=== PATIENT | male | born 1965 | race Caucasian/White ===

== ENCOUNTER 2018-12-07 23:15 | Inpatient (IN) | payer MEDICAID ==
[2018-12-07] MEDS ORDERED: NS 1,000 ML IV ONE ×2 (23:19→23:56)
[2018-12-07] MEDS ORDERED: HALOPERIDOL LACT 5 MG/ML INJ IM ONE (23:20)
[2018-12-07] MEDS ORDERED: LORazepam 2 MG/ML INJ IM PRN (23:20)
[2018-12-07] MEDS ORDERED: HALOPERIDOL LACT 5 MG/ML INJ ONE (23:21)
[2018-12-07] MEDS ORDERED: LORazepam 2 MG/ML INJ ONE (23:21)
--- NOTE | 2018-12-07 23:26 | EDPHY ---
H & P Time Seen by Provider: 12/07/18 23:24 HPI/ROS: HPI CHIEF COMPLAINT: Drug intoxication, agitated, combative behavior, 4 point restraints by EMS and police. HISTORY OF PRESENT ILLNESS: This patient is a 53-year-old male, unknown medical history presents emergency room in 4 point restraints by police and EMS with police escort. He apparently was in the streets causing a disturbance acting agitated, combative, screaming, admits to shooting up drugs what is believed to be methamphetamine and heroin. He arrives to the emergency room somewhat agitated, in 4 point restraints, yelling. I am unable to really get any history from him. He does admit to doing heroin and methamphetamine. IV drug use. Past Medical History: Polysubstance abuse, IV drug use Past Surgical History: Unknown surgical history Social History: polysubstance abuse Family History: Unknown ROS REVIEW OF SYSTEMS: Limited due to drug intoxication Exam Constitutional agitated, combative, yelling, in 4 point restraints, triage nursing summary reviewed, vital signs reviewed, awake/alert. 38.3 upon arrival , tachycardic to the 130s. Hypertensive 157/111. Eyes normal conjunctivae and sclera, EOMI, PERRLA. HENT oropharynx poor dentition. moist mucus membranes, no epistaxis, neck supple/ no meningismus, no raccoon eyes. Respiratory clear to auscultation bilaterally, normal breath sounds, no respiratory distress, no wheezing. Cardiovascular rate normal, regular rhythm, no murmur, no edema, distal pulses normal. Gastrointestinal soft, non-tender, no rebound, no guarding, normal bowel sounds, no distension, no pulsatile mass. Genitourinary no CVA tenderness. Musculoskeletal no midline vertebral tenderness, full range of motion, no calf swelling, no tenderness of extremities, no meningismus, good pulses, neurovascularly intact. Skin pink, warm, & dry, no rash, skin atraumatic. Neurologic screaming moving all the extremities but in 4 point restraints. Psychiatric screaming, agitated. Heme/Lymph/Immune no lymphadenopathy. Differential Diagnosis: Includes but is not limited to in a particular order polysubstance abuse, drug intoxication, IV drug use, acute psychosis, underlying mental illness Medical Decision Making: Plan for this patient due to his agitated combative, aggressive, screaming behavior patient be given 10 mg IM Haldol for his safety as well as staff safety, 2 mg IM Ativan eventually when he calms down will establish an IV, IV fluid bolus, basic labs, drug screen, alcohol level monitor closely. Monitor for worsening of condition. Re-evaluation: Notified by nursing staff at midnight: Patient noted to be febrile 38.3. Noted be tachycardic Plan for rectal Tylenol, IV fluids, chest x-ray, urine, blood work, drug screen and alcohol level. EKG interpretation by me on record in [employer] system. Impression time of EKG 0016, sinus tach 134, no ST elevation. Patient drug screen positive for methamphetamine. 1:30 a.m. patient admitted to the hospitalist service for tachycardia, fever of unclear etiology. He is much more, now with Haldol And Ativan. Rectal Tylenol given. 3rd L fluid given. Labs reviewed suppressed white count concerning, additionally elevated LFTs no abdominal pain on exam. Critical Care: Total Critical Care Time Spent Managing this Patient: 65 Minutes. This time was spent Exclusively with this patient. This Care was exclusive of procedures. The Organ System/life at risk was poly substance overdose, acute psychosis, encephalopathy, acute febrile illness, tachycardia, sepsis, neutropenia This Patient was in Critical Condition because poly substance overdose, acute psychosis, encephalopathy, acute febrile illness, tachycardia, sepsis, neutropenia Source: Patient, EMS - Medical/Surgical History Hx Asthma: No Hx Chronic Respiratory Disease: No Hx Diabetes: No Hx Cardiac Disease: No Hx Renal Disease: No Hx Cirrhosis: No Hx Alcoholism: No Hx HIV/AIDS: No Hx Splenectomy or Spleen Trauma: No Other PMH: denies - Social History Smoking Status: Heavy smoker Constitutional: Initial Vital Signs Temperature (C) 38.3 C H 12/07/18 23:39 Heart Rate 135 H 12/07/18 23:39 Respiratory Rate 28 H 12/07/18 23:39 Blood Pressure 157/111 H 12/07/18 23:39 O2 Sat (%) 95 12/07/18 23:39 O2 Delivery Mode Nasal Cannula O2 (L/minute) 2 Allergies/Adverse Reactions: No Known Allergies Allergy (Unverified 11/09/17 20:44) Home Medications: Medication Instructions Recorded Loratadine/Pseudoephedrine 1 each PO DAILY PRN 11/10/17 [Claritin-D 24 Hour Tablet] Acetaminophen [Tylenol 325mg (*)] 650 mg PO Q4HRS PRN tab 11/11/17 Medical Decision Making - Data Points Laboratory Results: Laboratory Results 12/07/18 23:35 12/07/18 23:35 Microbiology Results: MICROBIOLOGY 12/07/18 23:00 Blood Blood Culture - Preliminary Gram Negative Lg 12/07/18 23:00 Blood Blood Panel (PCR) - Final Enterobacteriaceae Group 12/08/18 00:24 Blood Blood Culture - Preliminary Medications Given: Aspirin Buffered (Aspirin Ec) 325 mg PO DAILY SAUNDRA Stop: 06/07/19 09:59 Last Admin: 12/09/18 10:36 Dose: 325 mg Bacitracin (Bacitracin Ointment) 1 christy TP BID SAUNDRA Stop: 01/08/19 14:29 Last Admin: 12/09/18 22:52 Dose: 1 christy Enoxaparin Sodium (Lovenox) 40 mg SC DAILY SAUNDRA Stop: 06/06/19 08:59 Last Admin: 12/09/18 09:25 Dose: 40 mg Sodium Chloride (Ns) 1,000 mls @ 150 mls/hr IV CONT SAUNDRA Stop: 06/06/19 02:14 Last Admin: 12/09/18 21:48 Dose: 1,000 mls Vancomycin/Sodium Chloride (Vancomycin 1 Gm (Premix)) 250 mls @ 250 mls/hr IV Q12H SAUNDRA Stop: 01/07/19 13:29 Last Admin: 12/10/18 02:01 Dose: 250 mls Piperacillin/Tazobactam/Dextrose (Zosyn (Premix)) 100 mls @ 200 mls/hr IV Q6HRS SAUNDRA PRN Reason: Protocol Stop: 01/07/19 17:59 Last Admin: 12/10/18 00:39 Dose: 100 mls Nicotine (Nicoderm Cq) 21 mg TD DAILY SAUNDRA Stop: 06/06/19 10:44 Last Admin: 12/09/18 09:25 Dose: 21 mg Nitroglycerin (Nitro-Bid 2%) 0.5 inch TP Q8HRS SAUNDRA Stop: 06/06/19 10:14 Last Admin: 12/09/18 22:52 Dose: 0.5 inch Discontinued Medications Acetaminophen (Tylenol Rectal) 650 mg GA EDNOW ONE Stop: 12/07/18 23:57 Last Admin: 12/08/18 00:05 Dose: 650 mg Aspirin (Aspirin Rectal) 300 mg GA DAILY SAUNDRA Stop: 06/06/19 10:14 Last Admin: 12/09/18 09:58 Dose: Not Given Haloperidol Lactate (Haldol Injection) 10 mg IM EDNOW ONE Stop: 12/07/18 23:21 Last Admin: 12/07/18 23:37 Dose: 10 mg Sodium Chloride (Ns) 1,000 mls @ 0 mls/hr IV EDNOW ONE; Wide Open PRN Reason: Protocol Stop: 12/07/18 23:20 Last Admin: 12/07/18 23:36 Dose: 1,000 mls Sodium Chloride (Ns) 1,000 mls @ 0 mls/hr IV ONCE ONE PRN Reason: Wide Open Stop: 12/07/18 23:57 Last Admin: 12/08/18 00:02 Dose: 1,000 mls Piperacillin/Tazobactam/Dextrose (Zosyn (Premix)) 100 mls @ 200 mls/hr IV EDNOW ONE PRN Reason: Protocol Stop: 12/08/18 00:35 Last Admin: 12/08/18 00:41 Dose: 100 mls Vancomycin HCl 1.5 gm/ Sodium (Chloride) 250 mls @ 166.67 mls/hr IV EDNOW ONE PRN Reason: Protocol Stop: 12/08/18 02:29 Last Admin: 12/08/18 01:12 Dose: 250 mls Sodium Chloride (Ns) 1,000 mls @ 0 mls/hr IV ONCE ONE PRN Reason: Wide Open Stop: 12/08/18 01:24 Last Admin: 12/08/18 01:30 Dose: 1,000 mls Sodium Chloride (Ns) 1,000 mls @ 0 mls/hr IV EDNOW ONE; Wide Open PRN Reason: Protocol Stop: 12/08/18 01:30 Last Admin: 12/08/18 02:58 Dose: 1,000 mls Piperacillin/Tazobactam/Dextrose (Zosyn 2.25 Gm (Premix)) 50 mls @ 100 mls/hr IV Q6HRS SAUNDRA PRN Reason: Protocol Stop: 01/07/19 05:59 Last Admin: 12/08/18 13:25 Dose: 50 mls Sodium Chloride (Ns) 1,000 mls @ 0 mls/hr IV EDNOW ONE PRN Reason: Wide Open Stop: 12/08/18 02:28 Last Admin: 12/08/18 07:04 Dose: Not Given Piperacillin/Tazobactam/Dextrose (Zosyn 2.25 Gm (Premix)) 50 mls @ 100 mls/hr IV ONCE ONE Stop: 12/08/18 14:14 Last Admin: 12/08/18 13:44 Dose: 50 mls Lorazepam (Ativan Injection) 2 mg IM EDNOW ONE Stop: 12/07/18 23:34 Last Admin: 12/07/18 23:37 Dose: 2 mg Departure - Departure Disposition: [facility] Acute Clinical Impression: Polysubstance abuse, Tachycardia, Methamphetamine abuse, Dehydration, SIGRID ( acute kidney injury), NSTEMI (non-ST elevated myocardial infarction) Fever Qualifiers: Fever type: unspecified Qualified Code(s): R50.9 - Fever, unspecified Condition: Critical
[2018-12-07] MEDS ORDERED: LORazepam 2 MG/ML INJ IM ONE (23:33)
[2018-12-07 23:45] LABS: PLATELET COUNT 254 10^3/uL (150-400)
[2018-12-07] MEDS ORDERED: ACETAMINOPHEN 650 MG SUPP PR ONE (23:56)
[2018-12-08] MEDS ORDERED: VANCOMYCIN 1.5 GM in D5W 250 ML IV ONE (00:06)
[2018-12-08] MEDS ORDERED: PIPERACILLIN/TAZO 4.5 GM/DEX 100 ML IV ONE (00:06)
[2018-12-08 00:22] LABS: CREATINE KINASE 230 IU/L (0-224)
[2018-12-08] MEDS ORDERED: ACETAMINOPHEN 325 MG TAB PO PRN (00:32)
[2018-12-08] MEDS ORDERED: ONDANSETRON DISINTEGRATING 4 MG TAB PO PRN (00:32)
[2018-12-08] MEDS ORDERED: ONDANSETRON 4 MG/2 ML VIAL IVP PRN (00:32)
[2018-12-08] MEDS ORDERED: VANCOMYCIN 1.5 GM in NS 250 ML IV ONE (01:00)
[2018-12-08] MEDS ORDERED: NS 1,000 ML IV ONE ×3 (01:23→02:27)
--- NOTE | 2018-12-08 02:06 | PDGENHP ---
History and Physical - Chief Complaint Agitation - History of Present Illness 53 yo M w/ hx of IVDU brought to ED by EMS for agitation. The patient is sedated during my evaluation and unable to provide any history. History obtained from chart and discussion with ED physician. Per report, the patient was lying down on the street not responding to commands. Police were called and the patient became agitated and combative so EMS was called. The admitted to IV methamphetamine use. He was sedated with Haldol and Ativan. During a period of observation in the ED he became febrile and tachycardic. He is also leukopenic. He is being admitted for sepsis of unknown etiology. Case discussed wit ED physician Dr. Molina; records reviewed and summarized above. History Information - Allergies/Home Medication List Allergies/Adverse Reactions: No Known Allergies Allergy (Unverified 11/09/17 20:44) Home Medications: Loratadine/Pseudoephedrine [Claritin-D 24 Hour Tablet] 1 each PO DAILY PRN 11/10 [Last Taken Unknown] I have personally reviewed and updated: family history, medical history - Past Medical History Additional medical history: IVDU - Surgical History Additional surgical history: Unable to obtain due to altered mental status - Family History Additional family history: Unable to obtain due to altered mental status - Social History Smoking Status: Heavy smoker Review of Systems Review of Systems: Unable to obtain due to altered mental status Physical Exam Physical Exam: Temp Pulse Resp BP Pulse Ox 39.2 C H 132 H 28 H 101/64 98 12/08/18 01:16 12/08/18 01:16 12/08/18 01:16 12/08/18 01:16 12/08/18 01:16 O2 (L/minute) 3 Constitutional: chronically ill appearing, unkempt Eyes: PERRL, anicteric sclera Ears, Nose, Mouth, Throat: moist mucous membranes, poor dentition Cardiovascular: tachycardia, No edema Respiratory: no respiratory distress, clear to auscultation Gastrointestinal: normoactive bowel sounds, soft, non-tender abdomen Skin: warm, normal color Neurologic: other (Sedated), No facial droop Psychiatric: encephalopathic, poor memory, other (Sedated) Lab Data & Imaging Review 12/07/18 23:35 12/07/18 23:35 WBC 1.85 10^3/uL (3.80-9.50) L 12/07/18 23:35 RBC 4.40 10^6/uL (4.40-6.38) 12/07/18 23:35 Hgb 12.2 g/dL (13.7-17.5) L 12/07/18 23:35 Hct 36.1 % (40.0-51.0) L 12/07/18 23:35 MCV 82.0 fL (81.5-99.8) 12/07/18 23:35 MCH 27.7 pg (27.9-34.1) L 12/07/18 23:35 MCHC 33.8 g/dL (32.4-36.7) 12/07/18 23: RDW 14.6 % (11.5-15.2) 12/07/18 23:35 Plt Count 254 10^3/uL (150-400) 12/07/18 23:35 MPV 9.0 fL (8.7-11.7) 12/07/18 23:35 Neut % (Auto) 77.4 % (39.3-74.2) H 12/07/18 23:35 Lymph % (Auto) 20.5 % (15.0-45.0) 12/07/18 23:35 Rock % (Auto) 0.5 % (4.5-13.0) L 12/07/18 23:35 Eos % (Auto) 1.1 % (0.6-7.6) 12/07/18 23:35 Baso % (Auto) 0.0 % (0.3-1.7) L 12/07/18 23: Nucleat RBC Rel Count 0.0 % (0.0-0.2) 12/07/18 23:35 Absolute Neuts (auto) 1.43 10^3/uL (1.70-6.50) L 12/07/18 23:35 Absolute Lymphs (auto) 0.38 10^3/uL (1.00-3.00) L 12/07/18 23:35 Absolute Monos (auto) 0.01 10^3/uL (0.30-0.80) L 12/07/18 23:35 Absolute Eos (auto) 0.02 10^3/uL (0.03-0.40) L 12/07/18 23:35 Absolute Basos (auto) 0.00 10^3/uL (0.02-0.10) L 12/07/18 23:35 Absolute Nucleated RBC 0.00 10^3/uL (0-0.01) 12/07/18 23:35 Immature Gran % 0.5 % (0.0-1.1) 12/07/18 23:35 Immature Gran # 0.01 10^3/uL (0.00-0.10) 12/07/18 23:35 RBC/WBC/PLT Morphology TNP 12/07/18 23:35 Platelet Estimate TNP 12/07/18 23:35 VBG Lactic Acid 1.8 mmol/L (0.7-2.1) 12/08/18 01:30 Sodium 138 mEq/L (135-145) 12/07/18 23:35 Potassium 3.5 mEq/L (3.5-5.2) 12/07/18 23:35 Chloride 106 mEq/L (97-110) 12/07/18 23:35 Carbon Dioxide 21 mEq/l (22-31) L 12/07/18 23:35 Anion Gap 11 mEq/L (6-14) 12/07/18 23:35 BUN 21 mg/dL (7-23) 12/07/18 23:35 Creatinine 1.6 mg/dL (0.7-1.3) H 12/07/18 23:35 Estimated GFR 45 12/07/18 23:35 Glucose 96 mg/dL (70-100) 12/07/18 23:35 Calcium 8.5 mg/dL (8.5-10.4) 12/07/18 23:35 Total Bilirubin 1.7 mg/dL (0.1-1.4) H 12/08/18 00:00 Conjugated Bilirubin 1.0 mg/dL (0.0-0.5) H 12/08/18 00:00 Unconjugated Bilirubin 0.7 mg/dL (0.0-1.1) 12/08/18 00:00 AST 342 IU/L (17-59) H 12/08/18 00:00 ALT 514 IU/L (21-72) H 12/08/18 00:00 Alkaline Phosphatase 175 IU/L (38-126) H 12/08/18 00:00 Creatine Kinase 230 IU/L (0-224) H 12/08/18 00:00 CK-MB (CK-2) Fraction 3.40 ng/mL (0.00-4.55) 12/08/18 00:00 CK-MB (CK-2) % 1.5 % (0.0-4.0) 12/08/18 00:00 Creatine Kinase Interp NEGATIVE (NEGATIVE) 12/08/18 00:00 POC Troponin I 0.16 ng/mL (0.00-0.08) H 12/08/18 01:38 Total Protein 5.8 g/dL (6.3-8.2) L 12/08/18 00:00 Albumin 3.0 g/dL (3.5-5.0) L 12/08/18 00:00 Procalcitonin 8.76 ng/mL (0.02-0.10) H 12/08/18 00:24 TSH 0.952 uIU/mL (0.465-4.680) 12/07/18 23:35 Urine Color YELLOW 12/08/18 00:45 Urine Appearance HAZY 12/08/18 00:45 Urine pH 5.0 (5.0-7.5) 12/08/18 00:45 Ur Specific [place] 1.015 (1.002-1.030) 12/08/18 00:45 Urine Protein 2+ (NEGATIVE) H 12/08/18 00:45 Urine Ketones NEGATIVE (NEGATIVE) 12/08/18 00:45 Urine Blood NEGATIVE (NEGATIVE) 12/08/18 00:45 Urine Nitrate NEGATIVE (NEGATIVE) 12/08/18 00:45 Urine Bilirubin NEGATIVE (NEGATIVE) 12/08/18 00:45 Urine Urobilinogen 2.0 EU (0.2-1.0) H 12/08/18 00:45 Ur Leukocyte Esterase NEGATIVE (NEGATIVE) 12/08/18 00:45 Urine RBC 1-3 /hpf (0-3) 12/08/18 00:45 Urine WBC 3-5 /hpf (0-3) H 12/08/18 00:45 Ur Epithelial Cells NONE SEEN /lpf (NONE-1+) 12/08/18 00:45 Hyaline Casts 15-25 /lpf (0-1) H 12/08/18 00:45 Urine Mucus TRACE /lpf (NONE-1+) 12/08/18 00:45 Urine Sperm PRESENT /hpf (NONE SEEN) 12/08/18 00:45 Urine Glucose NEGATIVE (NEGATIVE) 12/08/18 00:45 Salicylates < 1.0 mg/dL (2.0-20.0) L 12/08/18 00:00 Urine Opiates Screen NEGATIVE (NEGATIVE) 12/08/18 00:45 Acetaminophen < 10 mcg/mL (10-30) L 12/08/18 00:00 Urine Barbiturates NEGATIVE (NEGATIVE) 12/08/18 00:45 Ur Phencyclidine Scrn NEGATIVE (NEGATIVE) 12/08/18 00:45 Ur Amphetamine Screen NON-NEGATIVE (NEGATIVE) H 12/08/18 00:45 U Benzodiazepines Scrn NEGATIVE (NEGATIVE) 12/08/18 00:45 Urine Cocaine Screen NEGATIVE (NEGATIVE) 12/08/18 00:45 U Marijuana (THC) Screen NEGATIVE (NEGATIVE) 12/08/18 00:45 Ethyl Alcohol < 10 mg/dL (0-10) 12/07/18 23:35 Visualized and Interpreted Chest x-ray results: Yes Chest X-Ray results: other (Elevated R hemidiaphragm) Assessment & Plan Assessment: 53 yo M w/ hx of IVDU presents with agitation and found to have sepsis of unclear etiology. Plan: 1. Sepsis - Unclear etiology; patient presents with agitation and found to have fever, tachycardia, leukopenia, elevated LFTs, and very elevated procalcitonin. He is very high risk for bloodstream infection noting ongoing IVDU. - Admit to ICU for close monitoring - S/p 30 mL/kg fluid bolus, additional IVF PRN - Vancomycin, Zosyn for initial broad coverage - Blood cultures pending - Will also obtain HIV and acute hepatitis panel - TTE ordered noting high risk for endocarditis 2. Leukopenia - Possible due to acute infection. Review of available records reveals normal baseline. - Monitor CBC - Infectious management as above - HIV ordered 3. SIGRID - Likely related to dehydration and infection. - S/p aggressive IVF - Monitor BMP 4. Abnormal LFTs - Elevated in hepatocellular pattern, perhaps related to infection vs. IVDU. - Acute hepatitis panel ordered - Monitor CMP 5. Elevated troponin - Suspect demand ischemia from IVDU and significant tachycardia. - Monitor on telemetry, trend cardiac enzymes - TTE ordered 6. Agitation - Likely related to methamphetamine use. Now sedated after Haldol and Ativan in the ED. Diet - NPO Code - Full Ppx - LMWH Dispo - Admit under inpatient status
[2018-12-08] MEDS: NS 1,000 ML IV SCH ×2 (03:36→13:16)
[2018-12-08 04:18] LABS: HEPATITIS B SURFACE ANTIGEN NEGATIVE (NEGATIVE)
[2018-12-08 04:27] LABS: HEPATITIS A ANTIBODY IGM (BCH) NEGATIVE (NEGATIVE); HEPATITIS B CORE AB IGM NEGATIVE (NEGATIVE)
[2018-12-08 04:46] LABS: HEPATITIS C ANTIBODY TOTAL REACTIVE (NEGATIVE); HIV TYPE 1 AND 2 NEGATIVE (NEGATIVE)
[2018-12-08] MEDS: PIPERACILLIN/TAZO 2.25 GM/DEX 50 ML IV SCH ×2 (06:19→13:25)
[2018-12-08 06:20] LABS: PLATELET COUNT 215 10^3/uL (150-400)
--- NOTE | 2018-12-08 10:07 | HOSPPROG ---
Hospitalist Progress Note Assessment/Plan: The patient is a 53-year-old male with PMH polysubstance abuse who was admitted for severe sepsis with unknown infectious source- found to have NSTEMI secondary to methamphetamine abuse. ASSESSMENT/PLAN: Severe Sepsis, unk infectious source -IVF, Abx - vanc, Zosyn. -BCx pending. NSTEMI, 2/2 demand ischemia and meth abuse Meth abuse -counselor manager on cessation -NTG prn CP -Cardiology recs appreciated SIGRID, 2/2 above -Would not be surprised if he had suffered ATN from reduced kidney blood flow. -IVF. Abnl Hep C test -check confirmatory test -viral PCR Abnl appearing urine -Recheck UA. Suspected reactive airways disease -probably from smoking meth, but pt may have asthma as well. -May consider Tx if pt c/o dyspnea. -prn O2, SVNs. Agitation/Combativeness -Pt received Haldol/Ativan earlier this AM. -2/2 meth, which hopefully has worn off. -monitor for meth abstinence syndrome/withdrawal VTE prophylaxis: Lovenox Code Status: Full code Status: Inpatient for > 2 midnight stay. Disposition: ICU ____ SUBJECTIVE: OBJECTIVE: Physical Exam: General: The patient is a male who is sleeping and in no acute distress. HEENT: normocephalic, extraocular movements intact, conjunctivae clear. Mucous membranes moist. Neck: trachea midline, no visible masses. CV: +S1/S2, RRR, no MRG. Resp: unlabored, CTAB no RRW. Abd: soft and nondistended. Appears to be nontender. Musculoskeletal: Normal muscle tone/bulk. Neuro: cranial nerves II - XII grossly intact. Intact gross motor and sensory function. Psych: Unable to assess as patient is sleeping. Skin: No pallor. No petechiae. +multiple tattoos. Heme/lymph: No peripheral edema at bilateral ankles. Labs/Imaging/Other Tests: Personally reviewed/interpreted. Objective: Vital Signs Temp Pulse Resp BP Pulse Ox 36.9 C 110 H 21 H 103/65 93 12/08/18 07:51 12/08/18 07:51 12/08/18 07:51 12/08/18 07:51 12/08/18 07:51 Microbiology 12/08/18 00:58 Respiratory Panel (PCR) - Final Nasal, Sinus - Swab No Organism Detected By Pcr Laboratory Results 12/08/18 05:55 12/08/18 05:55 12/07/18 12/08/18 12/09/18 05:59 05:59 05:59 Intake Total 4950 Output Total 150 Balance 4800 - Time Spent With Patient Time Spent with Patient: greater than 35 minutes Time Spent with Patient: Greater than 35 minutes spent on this patients care, greater than 50% of time spent counseling, educating, and coordinating care regarding the above mentioned plan. ICD10 Worksheet Patient Problems: Problems Problem Status Onset SIGRID (acute kidney injury) Acute Dehydration Acute Fever Acute Methamphetamine abuse Acute Polysubstance abuse Acute Tachycardia Acute Elevated serum creatinine Acute IV drug abuse Acute
--- NOTE | 2018-12-08 10:10 | SOAPPROG ---
SOAP Progress Note Assessment/Plan: Assessment: Cardiology consultations performed and dictated. 53 y/o man found combative and delirium last night with Methamphetamine OD. Troponin found to be 2.4. ECG: Sinus tachycardia with Q waves anteriorly but no ST elevation or depression. He is very somnolent but arousable. Mumbles no CP. Otherwise not able to give oral history. On exam euvolemic and no S3. IMP: 1)NQWMI in setting of Methamphetamine OD 2)Fevers and elevated LFTs and serum creatinine REC: 1)echo today to evaluate LVEF and if any obvious valvular lesions or vegetations. 2)serial cardiac troponin q 6hrs x 2 more 3)empiric nitropaste 1/2" q 8hrs if SBP > 90 4)ASA 325mg AR qday 5)CAD risk factors with either cardiac cath later in hospitalization or lexiscan cardiolite once echo done and pt more awake and can give better history. Thanks. Will follow with you. 12/08/18 10:06 Objective: Vital Signs Temp Pulse Resp BP Pulse Ox 36.9 C 110 H 21 H 103/65 93 12/08/18 07:51 12/08/18 07:51 12/08/18 07:51 12/08/18 07:51 12/08/18 07:51 Microbiology 12/08/18 00:58 Respiratory Panel (PCR) - Final Nasal, Sinus - Swab No Organism Detected By Pcr Laboratory Results 12/08/18 05:55 12/08/18 05:55 12/07/18 12/08/18 12/09/18 05:59 05:59 05:59 Intake Total 4950 Output Total 150 Balance 4800 ICD10 Worksheet Patient Problems: Problems Problem Status Onset SIGRID (acute kidney injury) Acute Dehydration Acute Fever Acute Methamphetamine abuse Acute Polysubstance abuse Acute Tachycardia Acute Elevated serum creatinine Acute IV drug abuse Acute
--- NOTE | 2018-12-08 10:41 | ECHO ---
[email or web address] [address] Main: [phone] Echocardiography Examination Transthoracic Name: DYLAN BOB MR#: [id number] Study Date: 12/08/2018 Study Time: 09:13 AM Date of : 1965 Age: 53 year(s) Height: 182.9 cm (72 in.) Weight: 90.72 kg (200 lb.) BSA: 2.13 m2 Gender: Male Examination: Echo Contrast: Image Quality: Rhythm: Tachycardia Heart Rate: 112 bpm BP: 100 mmHg/66 mmHg Indication: Meth, Elevated Troponin, Sustained Ventricular Tachycardia Procedure Staff Referring Physician: [employer] Sales Representative: Brandt Cee RDCS Reading Physician: Ras Milan MD Requesting Provider: Ordering Physician: Erich Fierro Indication: Meth, Elevated Troponin, Sustained Ventricular Tachycardia Measurements Chambers AV/MV Label Value Normal Value Label Value Normal Value LVDd, MM 4.4 cm (4.2cm - 5.9cm) MV E Vmax 0.75 m/s LVDd, 2D 4.9 cm (4.2cm - 5.9cm) MV A Vmax 1.17 m/s LVDs, MM 3.1 cm (2cm - 3.8cm) MV E/A 0.64 LVDs, 2D 3.2 cm (2.1cm - 4cm) MV E/E' lateral 18.2 IVSd, MM 1.2 cm (0.6cm - 0.9cm) MV E/E' septal 22.5 (0.5 - 1.7) IVSd, 2D 0.9 cm (0.6cm - 1.1cm) MV E' septal 0.03 m/s LVPWd, MM 1.4 cm (0.6cm - 1cm) MV E' lateral 0.04 m/s LVPWd, 2D 1 cm (0.6cm - 1cm) MV E/E' mean 21.43 LVEF, 2D 64 % (54% - 74%) MV E' mean 0.04 m/s LA Volume, BP 58 ml (18ml - 58ml) TV/PV LAESV index, BP 27.2 ml/m2 Label Value Normal Value Additional Vessels PV PGmax 3 mmHg Label Value Normal Value PV Vmax, Caliper 0.82 m/s (0.6m/s - 0.9m/s) AoRoot, MM 3.4 cm (2.2cm - 3.7cm) Conclusions Left Ventricle: CONCLUSIONS:1)Low normal LV systolic function with a LVEF of 50% and abnormal septal wall Patient: DYLAN BOB Study Date: 12/08/2018 Page 1 of 2 09:13 AM bounce.2)Borderline concentric LVH with mild diastolic dysfunction noted.'3)Trivial to mild MR without MV prolapse.4)Trivial to mild TR noted.5)No obvious vegetations of any of caridac valves.6)No pericardial effusion seen. Findings Left Ventricle: Left ventricle is normal in size. CONCLUSIONS: 1)Low normal LV systolic function with a LVEF of 50% and abnormal septal wall bounce. 2)Borderline concentric LVH with mild diastolic dysfunction noted.' 3)Trivial to mild MR without MV prolapse. 4)Trivial to mild TR noted. 5)No obvious vegetations of any of caridac valves. 6)No pericardial effusion seen.The LV wall thickness is at the upper limits of normal. There is paradoxic septal motion suggestive of bundle branch block, paced cardiac rhythm, or prior cardiac surgery. Borderline concentric LV hypertrophy. Right Atrium: The right atrium size is at the upper limits of normal. Mitral Valve: Mitral valve appears structurally normal. Trivial to mild mitral regurgitation. Aortic Valve: Aortic leaflets are normal in appearance and function. No aortic valve regurgitation. There is no aortic stenosis. Tricuspid Valve: Tricuspid valve leaflets are structurally normal. Trivial tricuspid regurgitation. Pulmonic Valve: Pulmonic leaflets are normal in appearance and function. Aorta: The aorta is normal. The aortic root size in M-mode measures 3.4 cm. Aorta Measurements AoRoot, MM is 3.4 cm. IVC: The inferior vena cava is mildly dilated. Pericardium: No pericardial effusion. Exam Details Procedure Ordered: Echo (No Signature Object) Patient: DYLAN BOB Study Date: 12/08/2018 Page 2 of 2 09:13 AM [id number]
[2018-12-08] MEDS: NITROGLYCERIN 2% 1 GM PACKET TP SCH ×3 (10:44→22:48)
[2018-12-08] MEDS: NICOTINE 21 MG/24 HR PATCH TD SCH (10:52)
[2018-12-08] MEDS: ENOXAPARIN 40 MG/0.4 ML SYR SC SCH (10:54)
--- NOTE | 2018-12-08 11:04 | GCON ---
[f rep st] CONSULTATION CARDIOLOGY CONSULT DATE OF CONSULTATION: 12/08/2018 REASON FOR CONSULTATION: Methamphetamine overdose with non-Q-wave AL. HISTORY OF PRESENT ILLNESS: The patient is a 53-year-old gentleman, unable to give an accurate histo ry. He has no past medical records to evaluate. He was found by the police on the street last night around midnight with delirium and combativeness. He was arrested and brought to the ER. Clinically and by drug screen, he appeared to have a methamphetamine overdose. He was given Haldol and medicat ions and is in the intensive care unit. A troponin is 2.4. His EKG shows sinus tachycardia, 108 shira ts per minute with poor anterior R-wave progression, but no acute ST elevation or depression. He is somnolent, but awakable. He mumbles. He is not having chest pain, but otherwise cannot give much of a history. His blood pressure is 103/65 with a heart rate in sinus of 110 beats per minute. PAST MEDICAL HISTORY: Unknown. PAST SURGICAL HISTORY: Unknown. CURRENT MEDICATIONS: Zosyn 2.25 g IV q.6 hours, Lovenox 40 mg subcu q.a.m., normal saline at 150 cc/ hour, and vancomycin. ALLERGIES: No known drug allergies. SOCIAL HISTORY: Positive for methamphetamine use. Rest of history unknown. FAMILY HISTORY: Unable to give accurate family history. REVIEW OF SYSTEMS: The patient is somnolent and delirious and unable to give accurate review of syst ems. PHYSICAL EXAMINATION: VITALS: Initial temperature 39.2 Celsius, now 36.9 Celsius, pulse 110 and sin us tachycardia. Blood pressure 103/65, respirations 18, 93% on room air. Weight 90.7 kg. GENERAL: A disheveled and somnolent gentleman sleeping without acute respiratory distress. EYES: Pupils equ al and reactive to light. ENT: Oral mucosa with no cyanosis. NECK: Jugular venous pressure to 7 c m. Carotid pulses 2+ bilaterally. LUNGS: Clear to auscultation bilaterally without rales, rhonchi, or wheezing. HEART: Tachycardic, normal rhythm. No obvious murmurs or S3. Abdominal exam soft an d nontender. No guarding or rebound. EXTREMITIES: 2+ peripheral pulses, including femoral and peda l pulses. No edema noted. MUSCULOSKELETAL: No scoliosis. NEURO: Sedated and delirious affect and mood. SKIN: Multiple tattoos. No obvious bleeding or cyanosis. NECK: No nuchal rigidity. EKG this morning, sinus tachycardia at 108 beats per minute. Poor R-wave progression anteriorly. No acute ST elevation or depression. LABS: White count 12.1, hematocrit 35, platelets 215,000, MCV 84. Sodium 138, potassium 3.5, chlori de 112, bicarb 23, BUN 21, creatinine 1.5, glucose 119, AST 268, ALT 412, troponin 2.4. IMPRESSION: A 53-year-old gentleman with clinically methamphetamine overdose with acute liver and ki dney damage and non-Q-wave myocardial infarction. He does not appear to be having ST-elevation, and I wonder if his non Q-wave myocardial infarction is related to acute vasospasm from his methamphetami ne. RECOMMENDATIONS: 1. Would add empiric nitroglycerin paste 0.5 inch q.8 hours as long as his systolic blood pressure a crystal 90. 2. Would start aspirin 300 mg rectally daily. 3. Would get an echocardiogram today to evaluate LV function. 4. Would get serial serum troponin levels q.6 hours x2 more sets to make sure his myocardial injury is coming down. 5. Once he is more awake and echo results are known, would recommend risk stratifying him with eithe r a heart catheterization or a Lexiscan Cardiolite stress test later in this hospitalization. Thank you for allowing me to participate in the care of the patient. Cardiology service will follow along with you during his hospitalization. /[id number]/MODL
[2018-12-08] MEDS: ASPIRIN RECTAL 300 MG SUPP PR SCH (13:16)
[2018-12-08] MEDS ORDERED: PIPERACILLIN/TAZO 2.25 GM/DEX 50 ML IV ONE (13:45)
--- NOTE | 2018-12-08 14:14 | GCON ---
[f rep st] CONSULTATION DATE OF CONSULTATION: 12/08/2018 HPI: This patient is a 53-year-old male with a history of IV drug use, who was initially found on street unresponsive. Police were called and he became very combative, yelling and screaming. He w as treated with Haldol, Ativan and brought to the emergency department. He continued to be highly co mbative at that time, requiring restraints and was treated with another 10 mg of Haldol, as well as A tivan x2 mg. He was found also to be febrile at 38.3, and had leukopenia. Once his agitation was co ntrolled, he was admitted to the hospital with a sepsis of unknown origin workup. There were multipl e other laboratory abnormalities, but his ability to provide history was markedly impaired, other norah n he admitted to methamphetamine use. He also reported heroin use in the field, but his tox screen w as negative for opiates. REVIEW OF SYSTEMS: Otherwise negative. PAST MEDICAL HISTORY: Includes a right antecubital arm abscess that required drainage in November. There was a phlegmon at that time and he was seen by Dr. Jones. He had no alcohol withdraw al at that time. IV drug use as described above. PAST SURGICAL HISTORY: None, as far as we know. SOCIAL HISTORY: Polysubstance abuse is reported. FAMILY HISTORY: Unknown. CURRENT MEDICATIONS: Include Tylenol, aspirin, Lovenox, nicotine patch, Zofran, Zosyn, normal saline and vancomycin. EXAM: VITAL SIGNS: He had a T-max of 39.2, currently 36.8. At the time of my exam, blood pressure is 103/64, heart rate 108, respirations 19, oxygen saturation 96% on room air. GENERAL: He was high ly somnolent, but did arouse to voice and answer some questions, yes or no, followed simple commands, but was mostly obtunded. HEENT: Pupils equally round and reactive to light, nonicteric and noninje cted. Mucous membranes are moist without erythema or exudate. NECK: Supple without adenopathy or j ugular vein distention. RESPIRATORY: His breath sounds were clear to auscultation bilaterally witho ut wheezes, rubs, or rales. HEART: Regular rate and rhythm without obvious murmur. ABDOMEN: Soft, nontender and nondistended without hepatosplenomegaly. EXTREMITIES: No clubbing, cyanosis, or evin a. NEUROLOGIC: Exam was nonfocal other than the obtundation including deep tendon reflexes. SKIN: Warm and dry without evidence of rash, but multiple tattoos. OBJECTIVE DATA: Includes a chest x-ray showing hypoventilatory features, but some right hilar fullne ss. His procalcitonin level was at least 8. His white count initially was only 1.85 (this morning i s 12.0), hematocrit 34.6, platelets of 215. Sodium is 138, potassium 3.5, chloride 110, bicarb 23, a nion gap initially 11, down to 5 now. BUN 21, creatinine was 1.6, down to 1.5. Glucose 119. Total bili 2.2, alk phos was 175, down to 111. AST was 342, down to 268. ALT 514, down to 412 today. CK was 230. Troponin was 2.4. Albumin 2.3. TSH was normal. UA was unremarkable. Tox screen was sign ificant for amphetamines, but lacked opiates or alcohol. ASSESSMENT AND PLAN: 1. Acute methamphetamine intoxication. He is quite calm at this point and I would pursue as calm an atmosphere as possible with lights down low and minimal stimulation, as these patients can have card iovascular collapse with excess stimulation. Hopefully, this will wear out in the next 24 to 48 hour s and be less of an issue. 2. Fever and sepsis of uncertain origin. It may be in his lungs. His blood cultures are currently negative, but the very high procalcitonin level coupled with fever and leukopenia is concerning for s epsis. Subsequently, I think that we should continue his Zosyn and his vancomycin. We will adjust t hose doses on the Zosyn and ask Pharmacy for management on the vanco. 3. Elevated troponin. He has had a cardiology consult. Nitro paste was added as long as his blood pressure tolerates. An echocardiogram was done showing no vegetations. Ejection fraction of 50%. W e will continue to follow and monitor for changes and consider cardiac scanning versus cath later in his hospitalization. 4. Acute kidney injury. This is likely due to dehydration and is quite mild. He is making urine at this point. I do not think rhabdomyolysis is contributing much at the moment. We will continue wit h his IV fluids and ongoing monitoring. 5. Rhabdomyolysis. This is very mild. Second look would be appropriate at this time, as methamphet amine patients can have significant rhabdomyolysis. 6. Transaminitis. This may be related to alcohol or other issues. It is hard to know at this point . He is getting somewhat better, but given his history, I think we should look at hepatitis serologi es. A total of 65 minutes of critical care time was required for this patient. /[id number]/MODL
[2018-12-08] MEDS ORDERED: IPRATROPIUM/ALBUTEROL 3 ML DEYVIAL IH PRN (14:46)
--- NOTE | 2018-12-08 14:47 | PDMN ---
Medical Necessity Medical necessity: Pt meets IP criteria per MD & MCG M-160; est los >2 mn for eval/tx of sepsis (unclear etiology) w/SIGRID & NSTEMI secondary to meth use; admit to ICU for further workup/close monitoring, IVFs, IV abx & Cardiolgy consult; hx IVDU; per H&P & order 12/07/18
[2018-12-08 15:06] LABS: HEPATITIS A ANTIBODY IGM (BCH) NEGATIVE (NEGATIVE); HEPATITIS B CORE AB IGM NEGATIVE (NEGATIVE); HEPATITIS B SURFACE ANTIGEN NEGATIVE (NEGATIVE)
[2018-12-08] MEDS: VANCOMYCIN HCL/NORMAL SALINE 250 ML IV SCH (15:41)
[2018-12-08 15:43] LABS: HEPATITIS C ANTIBODY TOTAL REACTIVE (NEGATIVE)
--- NOTE | 2018-12-08 15:54 | ASMTCMCOM ---
CM Note CM Note Notes: CM attempted on two occasions to visit pt in his room. Pt medically unstable and unable to participate in conversation. Pt has a hx of meth use and was found combative and delirium on admission in ED. It is too early to determine needs at this time. CM will continue to follow. Plan: TBD Date Signed: 12/08/2018 03:53 PM Electronically Signed By:Sonia Ramirez
[2018-12-08] MEDS: PIPERACILLIN/TAZO 4.5 GM/DEX 100 ML IV SCH (17:43)
[2018-12-09] MEDS: PIPERACILLIN/TAZO 4.5 GM/DEX 100 ML IV SCH ×4 (00:44→18:27)
[2018-12-09] MEDS: VANCOMYCIN HCL/NORMAL SALINE 250 ML IV SCH ×2 (03:45→14:31)
[2018-12-09] MEDS: NS 1,000 ML IV SCH ×3 (05:28→21:48)
[2018-12-09] MEDS: NITROGLYCERIN 2% 1 GM PACKET TP SCH ×3 (06:02→22:52)
[2018-12-09 06:21] LABS: PLATELET COUNT 186 10^3/uL (150-400)
[2018-12-09 06:34] LABS: CREATINE KINASE 1048 IU/L (0-224)
--- NOTE | 2018-12-09 08:23 | CPEKG ---
Test Reason : OPEN Blood Pressure : / mmHG Vent. Rate : 134 BPM Atrial Rate : 135 BPM P-R Int : 079 ms QRS Dur : 089 ms QT Int : 296 ms P-R-T Axes : -88 040 062 degrees QTc Int : 442 ms Sinus or ectopic atrial tachycardia Anteroseptal infarct, age indeterminate Confirmed by Simone Santana ([id number]) on 12/09/2018 8:23:10 AM Referred By: Simone Santana Confirmed By:Simone Santana
[2018-12-09] MEDS: ENOXAPARIN 40 MG/0.4 ML SYR SC SCH (09:25)
[2018-12-09] MEDS: NICOTINE 21 MG/24 HR PATCH TD SCH (09:25)
[2018-12-09] MEDS: ASPIRIN RECTAL 300 MG SUPP PR SCH (09:58)
--- NOTE | 2018-12-09 10:06 | PDCARPN ---
Cardiology Progress Note Chief Complaint: Patient feels "heavy" Assessment/Plan: Assessment: Patient is a 53 y/o male with active methamphetamine use, who was brought to [facility] with severe confusion and combativeness. Cardiac biomarker elevation was noted (CK, MB, and troponin), and there is a subtle trend down. Echocardiography with low normal LVEF (50%) and some septal wall motion abnormalities. Concentric LVH was also noted, which begs the question of HTN. Patient is reportedly doing better from a mental status perspective, but not tremendously conversant. There was documentation to consider left heart catheterization or nuclear stress testing. No active cardiovascular complaints of chest pains or pressure. Mental status is still not normal (according to the patient). Concerns about compliance with prescribed medical therapy. Plan: (1) As the patient becomes more alert and oriented, discussions about wishes ( testing in particular) should be addressed - if the patient has no intent on cessation of illicit drugs, and follow up is potentially compromised given active, ongoing use of said illicits, decisions to pursue invasive procedures need to be thought out. This is NOT to say that any therapy or treatment should be withheld, but it is to clarify that follow up is important. (2) Would consider Velma MPI over angiography (given possible normal findings, and thus, lack of need to expose patient to risk of invasive procedure) Cardiology can continue to follow this patient, and provide further recommendations. Would reassess troponin today to ensure that trend continues to normalize. Elevation that was noted appears to be a non STEMI, and likely driven by illicit use and concomitant hypertensive response Subjective: No cardiovascular complaints Objective: Vital Signs (8 Hrs) Temp Pulse Resp BP Pulse Ox 12/09/18 08:00 36.2 C 87 18 109/72 94 12/09/18 06:00 36.1 C 97 15 106/60 96 12/09/18 04:00 36.1 C 98 15 115/66 97 12/09/18 02:00 100 15 93/50 L 96 Intake/Output (24 Hrs) 12/08/18 12/09/18 12/10/18 05:59 05:59 05:59 Intake Total 52625 Output Total 1965 Balance 40767 Intake: IV Intake (ml) 373 IV Infused (ml) 49617 Ns 1,000 ml @ 150 mls/hr 1184 IV CONT SAUNDRA Rx#: [id number] Ns 1,000 ml @ Wide Open 5000 IV EDNOW ONE Rx#: [id number] Piperacillin/Tazo 2.25 gm 362 /Dex 50 ml @ 100 mls/hr IV ONCE ONE Rx#: [id number] Vancomycin 1.5 gm In Ns 250 250 ml @ 166.67 mls/hr IV EDNOW ONE Rx#:[id number] Output: Urine (ml) 1965 Catheter 1815 Other: Weight 90.71 kg Result Diagrams: 12/09/18 05:55 12/09/18 05:55 Cardiac Labs: Cardiac Lab Results (72 Hrs) 12/09/18 12/08/18 12/08/18 05:55 17:10 12:30 CK-MB (CK-2) Fraction 15.00 H Troponin I 2.300 H 2.740 H 12/08/18 05:55 CK-MB (CK-2) Fraction Troponin I 2.400 H Telemetry: sinus tachycardia Echocardiogram: LVEF of 50% with septal wall motion abnormality. LVH was noted. No clear valve pathology was appreciated - Physical Exam Constitutional: WDWN, healthy appearing, no apparent distress Eyes: PERRL, EOMI Ears, Nose, Mouth, Throat: moist mucous membranes Cardiovascular: regular rate and rhythm (tachycardia), no murmurs, no rubs, no gallops, pulses symmetric bilat, No jugular vein distention Peripheral Pulses: 2+: dorsalis-pedis (R), dorsalis-pedis (L) Respiratory: clear to auscultate bilat, no crackles, no wheezes Gastrointestinal: normoactive bowel sounds Skin: no rashes, no edema, other (diffuse tattoos) Musculoskeletal: no muscular tenderness Neurologic: AAOx3, CN II-XII grossly intact Psychiatric: interactive ICD10 Worksheet Patient Problems: Problems Problem Status Onset SIGRID (acute kidney injury) Acute Dehydration Acute Fever Acute Methamphetamine abuse Acute Polysubstance abuse Acute Tachycardia Acute Elevated serum creatinine Acute IV drug abuse Acute
[2018-12-09] MEDS: ASPIRIN EC 325 MG TAB PO SCH (10:36)
[2018-12-09] MEDS: BACITRACIN OINTMENT 1 PACKET TP SCH ×2 (15:47→22:52)
--- NOTE | 2018-12-09 16:47 | PDINTPN ---
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 Know meth use and positive on tox screen. Opiates negative. * Acute methamphetamine intoxication- appears to be resolving with fewer medications and cooperative. Continue to observe as this can wax/wane * Bacteremia- he started with fever and high provalcitonin without obvious source. Blood cultures positive today with Enterococcus and currently covered with Vanco/Zosyn. initial TTE without vegitations; may need ALFRED if Bcx remain positive. Recheck. Hemodynamics OK * Troponin- peaked at 2.7. Defer to cards if further workup warranted * LFTs improved. Positive Hep C * Rhabdo 09/09 meth- CK increased to 1048- recheck am. Not a likely contributor to SIGRID * SIGRID- related to dehydration- creatine dropped from 1.6 to 1.2 * altered mental status related to meth- improving * Skin lac? base of 4th digit, right- place bacitracin 12/09/18 16:47 Subjective: stable overnight and more alert today, cooperative. No complaints except minor skin breakdown at 4th digit of right hand Objective: Vital Signs Temp Pulse Resp BP Pulse Ox 36.3 C 100 17 111/65 97 12/09/18 16:00 12/09/18 16:00 12/09/18 16:00 12/09/18 16:00 12/09/18 16:00 Laboratory Results 12/09/18 05:55 12/09/18 05:55 12/08/18 12/09/18 12/10/18 05:59 05:59 05:59 Intake Total 79464 Output Total 1965 Balance 78086 Physical Exam - Physical Exam General Appearance: no apparent distress, obtunded, other (aroused to voice and followed simple commands; cooperative) EENT: PERRL/EOMI Neck: supple Respiratory: lungs clear, normal breath sounds, decreased breath sounds, No respiratory distress, No accessory muscle use Cardiac/Chest: regular rate, rhythm, No edema, No JVD Abdomen: soft, No non-tender, No distended Skin: normal color, warm/dry, No cyanosis Lymphatic: no adenopathy Extremities: other (linear skin breakdown at base of 4th right digit), No pedal edema Neuro/Psych: normal mood/affect, cognition abnormalities, No oriented x 3 ICD10 Worksheet Patient Problems: Problems Problem Status Onset SIGRID (acute kidney injury) Acute Dehydration Acute Fever Acute Methamphetamine abuse Acute Polysubstance abuse Acute Tachycardia Acute Elevated serum creatinine Acute IV drug abuse Acute
--- NOTE | 2018-12-09 18:24 | HOSPPROG ---
Hospitalist Progress Note Assessment/Plan: The patient is a 53-year-old male with PMH polysubstance abuse who was admitted for severe sepsis with unknown infectious source- found to have NSTEMI secondary to methamphetamine abuse. ASSESSMENT/PLAN: Severe Sepsis, unk infectious source -IVF, Abx - vanc, Zosyn. -BCx prelim enterbacterciae x 1, 2nd pending. 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 Abnl Hep C test -pending confirmatory test -viral PCR Suspected reactive airways disease -probably from smoking meth, but pt may have asthma as well. -May consider Tx if pt c/o dyspnea. -prn O2, SVNs. Agitation/Combativeness/Encephalopathy - resolved -prn Haldol/Ativan. -2/2 meth -monitor for meth abstinence syndrome/withdrawal VTE prophylaxis: Lovenox Code Status: Full code Status: Inpatient for > 2 midnight stay. Disposition: ICU ____ SUBJECTIVE: OBJECTIVE: Physical Exam: General: The patient is a male who is in no acute distress. HEENT: normocephalic. Mucous membranes moist. Neck: trachea midline, no visible masses. CV: +S1/S2, RRR, no MRG. Resp: unlabored, CTAB no RRW. Abd: soft and nondistended. Musculoskeletal: Normal muscle tone/bulk. Neuro: cranial nerves II - XII grossly intact. Intact gross motor and sensory function. Psych: appropr mood. Skin: No pallor. No petechiae. +multiple tattoos. Heme/lymph: No peripheral edema at bilateral ankles. Labs/Imaging/Other Tests: Personally reviewed/interpreted. Subjective: Pt tired, says his whole body is sore. He has mostly been sleeping/ resting. No acute events per RN Objective: Vital Signs Temp Pulse Resp BP Pulse Ox 36.3 C 100 17 111/65 97 12/09/18 16:00 12/09/18 16:00 12/09/18 16:00 12/09/18 16:00 12/09/18 16:00 Laboratory Results 12/09/18 05:55 12/09/18 05:55 12/08/18 12/09/18 12/10/18 05:59 05:59 05:59 Intake Total 14866 Output Total 1965 Balance 87939 - Time Spent With Patient Time Spent with Patient: greater than 35 minutes Time Spent with Patient: Greater than 35 minutes spent on this patients care, greater than 50% of time spent counseling, educating, and coordinating care regarding the above mentioned plan. ICD10 Worksheet Patient Problems: Problems Problem Status Onset SIGRID (acute kidney injury) Acute Dehydration Acute Fever Acute Methamphetamine abuse Acute Polysubstance abuse Acute Tachycardia Acute Elevated serum creatinine Acute IV drug abuse Acute
[2018-12-10] MEDS: PIPERACILLIN/TAZO 4.5 GM/DEX 100 ML IV SCH ×5 (00:39→23:55)
[2018-12-10] MEDS: VANCOMYCIN HCL/NORMAL SALINE 250 ML IV SCH (02:01)
[2018-12-10] MEDS: NS 1,000 ML IV SCH ×2 (05:07→23:56)
[2018-12-10] MEDS: NITROGLYCERIN 2% 1 GM PACKET TP SCH ×2 (05:34→15:01)
[2018-12-10 06:14] LABS: PLATELET COUNT 200 10^3/uL (150-400)
[2018-12-10 06:43] LABS: CREATINE KINASE 499 IU/L (0-224)
[2018-12-10] MEDS: NICOTINE 21 MG/24 HR PATCH TD SCH (09:25)
[2018-12-10] MEDS: ENOXAPARIN 40 MG/0.4 ML SYR SC SCH (09:25)
[2018-12-10] MEDS: BACITRACIN OINTMENT 1 PACKET TP SCH ×2 (09:25→23:55)
[2018-12-10] MEDS: ASPIRIN EC 325 MG TAB PO SCH (09:25)
--- NOTE | 2018-12-10 13:06 | PDCARPN ---
Cardiology Progress Note Chief Complaint: No cardiovascular complaints today. Assessment/Plan: Assessment: 12-10-18 Patient feeling well today. No cardiovascular complaints of chest pains or pressure. No PND or orthopnea has been noted. Discussion with patient about the elevation to the Troponin that was noted, and likely cause being meth use. There are ongoing decisions about possible sepsis (and there was mention of possible ALFRED). Plan appears to be ICU to step down/PCU, and further decisions about imaging (ALFRED) and treatment to be rendered with this transition. 12-09-18 Patient is a 53 y/o male with active methamphetamine use, who was brought to [facility] with severe confusion and combativeness. Cardiac biomarker elevation was noted (CK, MB, and troponin), and there is a subtle trend down. Echocardiography with low normal LVEF (50%) and some septal wall motion abnormalities. Concentric LVH was also noted, which begs the question of HTN. Patient is reportedly doing better from a mental status perspective, but not tremendously conversant. There was documentation to consider left heart catheterization or nuclear stress testing. No active cardiovascular complaints of chest pains or pressure. Mental status is still not normal (according to the patient). Concerns about compliance with prescribed medical therapy. Plan: (1) Would consider outpatient follow up with cardiology - discussion about further testing (MPI or invasive left heart cath) (2) As decisions about care are made, further testing/treatments can be discussed Subjective: No cardiovascular complaints Objective: Vital Signs (8 Hrs) Temp Pulse Resp BP Pulse Ox 12/10/18 11:46 36.6 C 95 18 109/63 95 12/10/18 11:19 94 12/10/18 08:00 36.6 C 81 18 111/73 95 12/10/18 06:00 87 17 103/57 L 96 Intake/Output (24 Hrs) 12/09/18 12/10/18 12/11/18 05:59 05:59 05:59 Intake Total 57259 3963 Output Total 1965 2850 2050 Balance 77229 1113 -205 Intake: Oral (ml) 500 IV Intake (ml) 373 2207 IV Infused (ml) 33792 1256 Ns 1,000 ml @ 150 mls/hr 1184 1256 IV CONT SAUNDRA Rx#: [id number] Ns 1,000 ml @ Wide Open 5000 IV EDNOW ONE Rx#: [id number] Piperacillin/Tazo 2.25 gm 362 /Dex 50 ml @ 100 mls/hr IV ONCE ONE Rx#: [id number] Vancomycin 1.5 gm In Ns 250 250 ml @ 166.67 mls/hr IV EDNOW ONE Rx#:[id number] Output: Urine (ml) 1965 2850 Catheter 181 [id number] Other: Weight 90.71 kg Result Diagrams: 12/10/18 06:00 12/10/18 06:00 Cardiac Labs: Cardiac Lab Results (72 Hrs) 12/10/18 12/09/18 12/09/18 06:00 10:43 05:55 CK-MB (CK-2) Fraction 6.16 H 15.00 H Troponin I 1.180 H 12/08/18 12/08/18 12/08/18 17:10 12:30 05:55 CK-MB (CK-2) Fraction Troponin I 2.300 H 2.740 H 2.400 H Telemetry: Sinus rhythm - Physical Exam Constitutional: WDWN, healthy appearing, no apparent distress Eyes: PERRL, EOMI Ears, Nose, Mouth, Throat: moist mucous membranes Cardiovascular: regular rate and rhythm, no murmurs, no rubs, no gallops, pulses symmetric bilat, No jugular vein distention Peripheral Pulses: 2+: dorsalis-pedis (R), dorsalis-pedis (L) Respiratory: clear to auscultate bilat, no crackles, no wheezes Gastrointestinal: normoactive bowel sounds Skin: no edema Musculoskeletal: no muscular tenderness Neurologic: AAOx3, CN II-XII grossly intact Psychiatric: cooperative, interactive, following commands ICD10 Worksheet Patient Problems: Problems Problem Status Onset SIGRID (acute kidney injury) Acute Dehydration Acute Fever Acute Methamphetamine abuse Acute NSTEMI (non-ST elevated myocardial infarction) Acute Polysubstance abuse Acute Tachycardia Acute Elevated serum creatinine Acute IV drug abuse Acute
--- NOTE | 2018-12-10 13:18 | PDINTPN ---
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 Know meth use and positive on tox screen. Opiates negative. * Acute methamphetamine intoxication- appears to be resolving with fewer medications and cooperative. Continue to observe as this can wax/wane * Bacteremia- he started with fever and high proalcitonin without obvious source. Blood cultures positive 12/09 with Enterococcus and currently covered with Vanco/Zosyn. initial TTE without vegitations; may need ALFRED if Bcx remain positive. BP stable and repeat Bcx so far negative. Vanco dc'd. * Troponin- peaked at 2.7. Defer to cards if further workup warranted * LFTs improved. Positive Hep C * Rhabdo 09/09 meth- CK increased to 1048 and falling. Not a likely contributor to SIGRID * SIGRID- related to dehydration- creatine dropped from 1.6 to 1.2 * altered mental status related to meth- improving * Skin lac? base of 4th digit, right- place bacitracin * OK for floor 12/09/18 16:47 12/10/18 13:16 Subjective: stable overnight. Denies pain, LH, dizzy. Objective: Vital Signs Temp Pulse Resp BP Pulse Ox 36.6 C 95 18 109/63 95 12/10/18 11:46 12/10/18 11:46 12/10/18 11:46 12/10/18 11:46 12/10/18 11:46 Laboratory Results 12/10/18 06:00 12/10/18 06:00 12/09/18 12/10/18 12/11/18 05:59 05:59 05:59 Intake Total 45241 3963 Output Total 1965 2850 0 Balance 28629 1113 -2050 Physical Exam - Physical Exam General Appearance: WD/WN, alert, no apparent distress EENT: PERRL/EOMI, No scleral icterus (R), No scleral icterus (L) Neck: supple Respiratory: lungs clear, normal breath sounds, decreased breath sounds, No respiratory distress, No accessory muscle use Cardiac/Chest: regular rate, rhythm, No edema, No JVD Abdomen: non-tender, soft, No distended Skin: normal color, warm/dry, No cyanosis Lymphatic: no adenopathy Extremities: No pedal edema Neuro/Psych: no motor/sensory deficits, alert, normal mood/affect, oriented x 3 ICD10 Worksheet Patient Problems: Problems Problem Status Onset SIGRID (acute kidney injury) Acute Dehydration Acute Fever Acute Methamphetamine abuse Acute NSTEMI (non-ST elevated myocardial infarction) Acute Polysubstance abuse Acute Tachycardia Acute Elevated serum creatinine Acute IV drug abuse Acute
--- NOTE | 2018-12-10 13:21 | ASMTCMCOM ---
CM Note CM Note Notes: PT/OT are recommending home for patient. Discharge plan is independent. CM available if discharge needs arise. Date Signed: 12/10/2018 01:21 PM Electronically Signed By:Antonina Miles LCSW
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
[2018-12-11] MEDS: PIPERACILLIN/TAZO 4.5 GM/DEX 100 ML IV SCH ×2 (05:10→11:35)
[2018-12-11 05:38] LABS: PLATELET COUNT 241 10^3/uL (150-400)
[2018-12-11] MEDS: ASPIRIN EC 325 MG TAB PO SCH (08:34)
[2018-12-11] MEDS: NICOTINE 21 MG/24 HR PATCH TD SCH (08:34)
[2018-12-11] MEDS: ENOXAPARIN 40 MG/0.4 ML SYR SC SCH (08:34)
[2018-12-11] MEDS: BACITRACIN OINTMENT 1 PACKET TP SCH ×2 (09:39→20:25)
--- NOTE | 2018-12-11 09:53 | HOSPPROG ---
Hospitalist Progress Note Assessment/Plan: Severe Sepsis (Temp, HR, RR, elevated lactate, Cr, bili and leukopenia) - 2/2 Enterobacterciae bacteremia in setting of IVDA. Sepsis physiology improved. -on Zosyn, vanc d/c'd, further atbx per ID, can likely tailor -FQ sensitive, may be able to transition to po Levaquin at dc, discussed with ID -no murmur on exam, defer ALFRED per ID NSTEMI, 2/2 demand ischemia and meth abuse - chest pain free Rhabdo, resolved - 2/2 meth SIGRID, 2/2 above - resolved with IVF's Elevated LFT's - likely 2/2 Hep C -Hep C viral PCR pending -outpt f/u RAD - likely from smoking meth -prn nebs Agitation/Combativeness/Encephalopathy - 2/2 meth, resolved -prn Haldol/Ativan. VTE prophylaxis: Lovenox Code Status: Full code Disposition: Cont inpt, transfer to med/surg Subjective: Pt feels well. Denies CP or SOB. No abd pain, N/V. No more fevers. EAting well. Good uop. No complaints. Asks about discharge. Objective: Vital Signs Temp Pulse Resp BP Pulse Ox 36.8 C 75 21 H 136/82 H 95 12/11/18 08:30 12/11/18 08:30 12/11/18 08:30 12/11/18 08:30 12/11/18 08:30 Laboratory Results 12/11/18 05:20 12/11/18 05:20 12/10/18 12/11/18 12/12/18 05:59 05:59 05:59 Intake Total 3963 3181 Output Total 0860 9826 Balance 1113 -2444 - Physical Exam Constitutional: no apparent distress Eyes: PERRL Ears, Nose, Mouth, Throat: moist mucous membranes Cardiovascular: regular rate and rhythym, no murmur, rub, or gallop Respiratory: no respiratory distress, clear to auscultation Gastrointestinal: normoactive bowel sounds, soft, non-tender abdomen Skin: warm, other (many tattoos) Musculoskeletal: full muscle strength Neurologic: AAOx3 Psychiatric: interacting appropriately ICD10 Worksheet Patient Problems: Problems Problem Status Onset SIGRID (acute kidney injury) Acute Dehydration Acute Fever Acute Methamphetamine abuse Acute NSTEMI (non-ST elevated myocardial infarction) Acute Polysubstance abuse Acute Tachycardia Acute Elevated serum creatinine Acute IV drug abuse Acute
--- NOTE | 2018-12-11 12:08 | ASMTCMCOM ---
CM Note CM Note Notes: CM met with pt, completed CAGE. Pt reports he is not interested in stopping using and refused resources or assistance with creating linkage for outpatient appts. Pt said she does not want to go to the [facility] at discharge. He said he will find a place to stay. PT/OT cleared pt to be discharged Independently CM available if needs arise. Plan: Independent Date Signed: 12/11/2018 12:07 PM Electronically Signed By:YANN Johnson
[2018-12-11] MEDS ORDERED: HEPATITIS A VIRUS VACCINE 1,440 UNIT/ML SYRINGE IM ONE (12:15)
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
[2018-12-12 04:59] LABS: PLATELET COUNT 268 10^3/uL (150-400)
[2018-12-12] MEDS: ASPIRIN EC 325 MG TAB PO SCH (07:55)
[2018-12-12] MEDS: BACITRACIN OINTMENT 1 PACKET TP SCH (07:55)
[2018-12-12] MEDS: ENOXAPARIN 40 MG/0.4 ML SYR SC SCH (07:55)
[2018-12-12] MEDS: NICOTINE 21 MG/24 HR PATCH TD SCH (09:21)
[2018-12-12 11:23] VITALS: BP 106/73
--- NOTE | 2018-12-12 12:41 | ASDISCHSUM ---
" Discharge Information Plan Status:Home with No Needs Medically Cleared to Leave:12/12/2018 Discharge Date:12/12/2018 CM D/C Disposition:Streets (Homeless) ADT D/C Disposition:Home, Routine, Self-Care Projected Discharge Date:12/12/2018 Transportation at D/C:Medicaid Transportation Discharge Delay Reason: Follow-Up Date:12/12/2018 Discharge Slot: Final Diagnosis:bacteremia Placement Information Patient Contact Information Contact Name:ABELINO Relationship: Address: Home Phone: Work Phone: City: Alternate Phone: State/Traveler | VIP Code: Email: Financial Information Financial Class:Medicaid Primary Plan Desc[place] [place] Primary Plan Number:[id number] Secondary Plan Desc: Secondary Plan Number: Assessment Information LACE LACE Length of stay for Answers: 2 days current admission Acuity / Level of Answers: Yes Care: Did the patient have an inpatient admission? # of Emergency department Answers: 1-2 visits in the last 6 months Social determinants Answers: History of substance abuse (ETOH, street drugs, prescription drugs, etc.) Homelessness (street, fci) Score: 12 Date Signed: 12/12/2018 12:39 PM Electronically Signed By:Ngozi Quezada [facility] Progress Note CM Note CM Note Notes: CM attempted on two occasions to visit pt in his room. Pt medically unstable and unable to participate in conversation. Pt has a hx of meth use and was found combative and delirium on admission in ED. It is too early to determine needs at this time. CM will continue to follow. Plan: TBD Date Signed: 12/08/2018 03:53 PM Electronically Signed By:Sonia Ramirez [facility] CM Progress Note CM Note CM Note Notes: PT/OT are recommending home for patient. Discharge plan is independent. CM available if discharge needs arise. Date Signed: 12/10/2018 01:21 PM Electronically Signed By:Antonina Miles LCSW [facility] CM Progress Note CM Note CM Note Notes: CM met with pt, completed CAGE. Pt reports he is not interested in stopping using and refused resources or assistance with creating linkage for outpatient appts. Pt said she does not want to go to the [facility] at discharge. He said he will find a place to stay. PT/OT cleared pt to be discharged Independently CM available if needs arise. Plan: Independent Date Signed: 12/11/2018 12:07 PM Electronically Signed By:YANN Johnson Case Management Discharge Plan Note Case Management Discharge Discharge Order Complete? Answers: Yes Patient to Obtain Answers: Other Notes: Bedside delivery Medications [facility] Arranged Answers: Other Notes: [facility] will Pick (Date 12/12/2018 12:45 PM & Time) Family Notified Answers: No Notes: per pt request Discharge Comments Notes: CM spoke with pt in the room. Pt expressed intention to take antibiotics prescribed to him and verbalized unwillingness to stop IV drug use. He expressed new understanding that he should not clean needles with tongue, shirt or curyung water. Pt refused [facility]ci bed, but was given new clothes and flip flops from CM stock as pt's clothes were not in security. No further CM needs noted at this time. Date Signed: 12/12/2018 12:38 PM Electronically Signed By:Ngozi Quezada Intervention Information "
--- NOTE | 2018-12-12 15:12 | GDS ---
[f rep st] DISCHARGE SUMMARY DISCHARGE DIAGNOSES: 1. Severe sepsis. 2. Tzh-FK-ndhscajpm myocardial infarction. 3. Rhabdomyolysis. 4. Acute kidney injury. 5. Elevated liver function tests. 6. Reactive airway disease. 7. Agitation. 8. Bacteremia in the setting of IV drug use. CONSULTATIONS: 1. Critical Care. 2. Cardiology. 3. Infectious Disease. PHYSICAL EXAM: GENERAL: The patient is alert. VITAL SIGNS: Afebrile at 36.3, pulse is 99, respira tory rate 16, blood pressure is 106/73. He is saturating 92% on room air. I have seen evaluated the patient on the day of discharge. HOSPITAL COURSE: The patient is a 53-year-old male who presents to the hospital feeling ill. He was evaluated and diagnosed with: 1. Severe sepsis. This has resolved. 2. Bacteremia. This is in the setting of IV drug abuse. The patient has been counseled at length d uring this hospitalization about his use of IV methamphetamine. 3. NSTEMI. This is in the setting of severe meth abuse. The patient is chest free. He received a consultation from Cardiology. Further workup and evaluation were offered to the patient; however, he is declining at this time. He states he will follow up with Cardiology in the outpatient setting. He has been educated with regard to the importance of his followup. 4. Rhabdomyolysis. This has resolved with IV hydration. 5. Acute kidney injury, again in the setting of rhabdomyolysis and IV drug abuse. This has resolved . 6. Elevated LFTs. The patient does have hepatitis C. His LFTs are stable. 7. Reactive airway disease. He has not required oxygen. 8. Agitation. This has resolved. DISPOSITION: The patient will be discharged independently from the hospital. Further workup and edita luation have been offered to him. However, he is declining at this time. He states he will follow u p in the outpatient setting with his primary care physician as well as a surgery nurse. DISCHARGE MEDICATIONS: Please refer to EMR form. I have provided the patient a prescription for Lev aquin 750 mg daily #5. This has been mapped and provided to the patient prior to disposition. I hav e discussed the patient's care with Cardiology. It is recommended that the patient will follow up in the outpatient setting with a stress test. TIME SPENT WITH PATIENT: I have spent greater than 35 minutes in the care, coordination, and managem ent of this patient's disposition. /[id number]/MODL
== END 2018-12-12 13:41 | disposition home or self-care (01) | DRG 720 ==
LOC: EDUNIT# → OBSVTOIN 12-08 00:33 → F2N 12-08 07:58 → F3E 12-11 12:14
PROVIDERS: ADMIT Student in an Organized Health Care Education/Training Program; ATTEND Internal Medicine
DX: A41.59 Other Gram-negative sepsis (principal); R65.20 Severe sepsis without septic shock; I21.4 Non-ST elevation (NSTEMI) myocardial infarction; I21.A1 Myocardial infarction type 2; F11.129 Opioid abuse with intoxication, unspecified; F15.129 Other stimulant abuse with intoxication, unspecified; N17.9 Acute kidney failure, unspecified; R79.89 Other specified abnormal findings of blood chemistry; M62.82 Rhabdomyolysis; J45.909 Unspecified asthma, uncomplicated; F17.210 Nicotine dependence, cigarettes, uncomplicated; Z59.0 Homelessness; Z23 Encounter for immunization
CPT/HCPCS: 80305; 84484-ER; 96365; 96366; 97110-GP; 97116-GP; 97161-GP; 97165-GO; 97530-GO; 97535-GO; G0472; G0480; J1630; J1650; J2060; J2543; J3370